=== PATIENT | male | born 1955 | race Caucasian/White ===

== ENCOUNTER → 2020-06-27 | Outpatient (CLI) | payer MEDICARE, OTHER ==
[~2020-06-27] MED LIST: NAPR500 PO; OXYACE5T PO
[2020-06-27 12:55] LABS: BASOPHILS ABSOLUTE AUTO 0.04 K/mm3 (0.00-0.23); BASOPHILS PERCENT AUTO 0 % (0-2); EOSINOPHILS PERCENT AUTO 1 % (0-6); Hematocrit 49.1 % (37.0-53.0); Hemoglobin 16.4 g/dL (13.5-17.5); IMMATURE GRAN ABSOLUTE AUTO 0.07 K/mm3 (0.00-0.10); IMMATURE GRAN PERCENT AUTO 1 % (0-1); LYMPHOCYTES ABSOLUTE AUTO 1.88 K/mm3 (0.84-5.20); LYMPHOCYTES PERCENT AUTO 18 % (21-46); MONOCYTES ABSOLUTE AUTO 0.72 K/mm3 (0.16-1.47); MONOCYTES PERCENT AUTO 7 % (4-13); Mean Corpuscular HGB Conc 33.4 g/dL (31.5-36.5); Mean Corpuscular Volume 87 fL (80-100); Mean Platelet Volume 9.1 fL (9.1-12.4); NEUTROPHILS ABSOLUTE AUTO 7.45 K/mm3 (1.96-9.15); NEUTROPHILS PERCENT AUTO 73 % (41-73); Platelet Count 305 K/mm3 (150-400); RDW Coefficient Variation 13.1 % (11.7-14.2); RDW Standard Deviation 41.1 fL (35.1-46.3); Red Blood Cell Count 5.66 M/mm3 (4.30-5.90); White Blood Cell Count 10.26 K/mm3 (4.00-11.30)
[2020-06-27 13:13] LABS: Alanine Aminotransfer (ALT/SGP 28 U/L (12-78); Albumin, Blood 4.3 g/dL (3.4-5.0); Albumin/Globulin Ratio 1.4 (0.8-1.8); Alk Phos 80 U/L (40-126); Anion Gap 9 mmol/L (6-16); Aspartate Aminotrans (AST/SGOT 20 U/L (12-37); Bilirubin, Total 0.6 mg/dL (0.1-1.0); Blood Urea Nitrogen 19 mg/dL (8-24); Bun/Creatinine Ratio 21.3 (12.0-20.0); CO2, Blood 27 mmol/L (21-32); Chloride, Blood 102 mmol/L (98-108); Creatinine, Blood 0.89 mg/dL (0.60-1.20); Globulin, Blood 3.1 g/dL (2.2-4.0); Glomerular Filtration Rate >60 (60-); Glucose, Blood 100 mg/dL (70-99); Sodium, Blood 138 mmol/L (136-145); Thyroid Stimulating Hormone 0.742 uIU/mL (0.360-4.800); Total Protein, Blood 7.4 g/dL (6.4-8.2)
== END | disposition home or self-care (01) ==
LOC: PLD 12:43 → LAB SHORT 12:43
PROVIDERS: Physician Assistant
DX: R21 Rash and other nonspecific skin eruption (principal); R53.83 Other fatigue
CPT/HCPCS: 80053; 84443; 85025

== ENCOUNTER → 2020-12-09 | Outpatient (CLI) | payer MEDICARE, OTHER | END | disposition home or self-care (01) | LOC: LAB SHORT 11:14 → LAB 11:14 | DX: L92.0 Granuloma annulare (principal) | CPT/HCPCS: 88305; 88313 ==

== ENCOUNTER → 2021-10-22 | Outpatient (CLI) | payer MEDICARE ==
[2021-10-22 15:37] LABS: BASOPHILS ABSOLUTE AUTO 0.04 K/mm3 (0.00-0.23); BASOPHILS PERCENT AUTO 1 % (0-2); EOSINOPHILS ABSOLUTE AUTO 0.09 K/mm3 (0.00-0.68); EOSINOPHILS PERCENT AUTO 1 % (0-6); Hematocrit 45.8 % (37.0-53.0); Hemoglobin 14.9 g/dL (13.5-17.5); IMMATURE GRAN ABSOLUTE AUTO 0.02 K/mm3 (0.00-0.10); IMMATURE GRAN PERCENT AUTO 0 % (0-1); LYMPHOCYTES ABSOLUTE AUTO 2.06 K/mm3 (0.84-5.20); LYMPHOCYTES PERCENT AUTO 32 % (21-46); MONOCYTES ABSOLUTE AUTO 0.53 K/mm3 (0.16-1.47); MONOCYTES PERCENT AUTO 8 % (4-13); Mean Corpuscular HGB 28.9 pg (26.0-34.0); Mean Corpuscular HGB Conc 32.5 g/dL (31.5-36.5); Mean Corpuscular Volume 89 fL (80-100); Mean Platelet Volume 9.4 fL (9.1-12.4); NEUTROPHILS ABSOLUTE AUTO 3.78 K/mm3 (1.96-9.15); NEUTROPHILS PERCENT AUTO 58 % (41-73); Platelet Count 260 K/mm3 (150-400); RDW Coefficient Variation 13.2 % (11.7-14.2); RDW Standard Deviation 43.6 fL (35.1-46.3); Red Blood Cell Count 5.15 M/mm3 (4.30-5.90); White Blood Cell Count 6.52 K/mm3 (4.00-11.30)
[2021-10-22 16:00] LABS: Alanine Aminotransfer (ALT/SGP 35 U/L (12-78); Albumin, Blood 3.8 g/dL (3.4-5.0); Albumin/Globulin Ratio 1.3 (0.8-1.8); Alk Phos 74 U/L (50-136); Anion Gap 5 mmol/L (6-16); Aspartate Aminotrans (AST/SGOT 24 U/L (12-37); Bilirubin, Total 0.5 mg/dL (0.1-1.0); Blood Urea Nitrogen 28 mg/dL (8-24); Bun/Creatinine Ratio 31.1 (12.0-20.0); CHOL/HDL RATIO 3.8; CO2, Blood 27 mmol/L (21-32); Calcium, Blood 8.6 mg/dL (8.5-10.1); Chloride, Blood 108 mmol/L (98-108); Cholesterol 186 mg/dL (50-200); Glomerular Filtration Rate >60 (60-); Glucose, Blood 95 mg/dL (70-99); HDL Cholesterol 49 mg/dL (>39); LDL/HDL RATIO 2.4; Low Density Lipoprotein Chol 119 mg/dL (0-110); Potassium, Blood 3.9 mmol/L (3.5-5.5); Sodium, Blood 140 mmol/L (136-145); Thyroid Stimulating Hormone 0.647 uIU/mL (0.360-4.800); Total Protein, Blood 6.8 g/dL (6.4-8.2); Triglycerides 90 mg/dL (30-160); Very Low Density Lipoprot Chol 18 mg/dL (6-32)
== END | disposition home or self-care (01) ==
LOC: LAB SHORT 13:14
PROVIDERS: Family Medicine
DX: I10 Essential (primary) hypertension (principal)
CPT/HCPCS: 36415; 80053; 80061; 84443; 85025

== ENCOUNTER 2024-05-28 12:54 | Inpatient (IN) | payer OTHER, MEDICARE ==
[2024-05-28] VITALS (23 sets, daily range): BP systolic 114–158; BP diastolic 67–98
[~2024-05-28] VITALS: Ht 177.8 cm; Wt 86.3 kg
[2024-05-28] MEDS ORDERED: FentaNYL Citrate 50 MCG/ML 2 ML Injection IV ONE ×2 (13:10→13:55)
[2024-05-28] MEDS ORDERED: CeFAZolin Sodium 2,000 MG in NS 100 ML IV ONE (13:10)
[2024-05-28] MEDS ORDERED: Ondansetron HCl 2 MG / ML 2ML Vial IV ONE (13:10)
[2024-05-28 13:24] LABS: BASOPHILS ABSOLUTE AUTO 0.04 K/mm3 (0.00-0.23); BASOPHILS PERCENT AUTO 0 % (0-2); EOSINOPHILS ABSOLUTE AUTO 0.04 K/mm3 (0.00-0.68); EOSINOPHILS PERCENT AUTO 0 % (0-6); Hematocrit 47.2 % (37.0-53.0); Hemoglobin 15.9 g/dL (13.5-17.5); IMMATURE GRAN ABSOLUTE AUTO 0.22 K/mm3 (0.00-0.10); IMMATURE GRAN PERCENT AUTO 1 % (0-1); LYMPHOCYTES ABSOLUTE AUTO 2.41 K/mm3 (0.84-5.20); LYMPHOCYTES PERCENT AUTO 14 % (21-46); MONOCYTES ABSOLUTE AUTO 0.77 K/mm3 (0.16-1.47); MONOCYTES PERCENT AUTO 5 % (4-13); Mean Corpuscular HGB 29.9 pg (26.0-34.0); Mean Corpuscular HGB Conc 33.7 g/dL (31.5-36.5); Mean Corpuscular Volume 89 fL (80-100); Mean Platelet Volume 9.1 fL (9.1-12.4); NEUTROPHILS ABSOLUTE AUTO 13.42 K/mm3 (1.96-9.15); NEUTROPHILS PERCENT AUTO 79 % (41-73); Platelet Count 287 K/mm3 (150-400); RDW Coefficient Variation 13.2 % (11.7-14.2); Red Blood Cell Count 5.32 M/mm3 (4.30-5.90)
[2024-05-28] MEDS ORDERED: Diphth,Pertuss(Acell),Tet Vac 0.5 ML VIAL IM ONE (13:45)
[2024-05-28 13:49] LABS: Albumin, Blood 4.3 g/dL (3.4-5.0); Albumin/Globulin Ratio 1.5 (0.8-1.8); Bilirubin, Total 0.8 mg/dL (0.1-1.0); Bun/Creatinine Ratio 20.6 (12.0-20.0); Calcium, Blood 9.4 mg/dL (8.5-10.1); Creatinine, Blood 1.07 mg/dL (0.60-1.20); Globulin, Blood 2.9 g/dL (2.2-4.0); Potassium, Blood 3.9 mmol/L (3.5-5.5); Total Protein, Blood 7.2 g/dL (6.4-8.2)
[2024-05-28] MEDS ORDERED: HYDROmorphone HCl/Pf 1MG SYR IV ONE (15:00)
[2024-05-28] MEDS ORDERED: Lactated Ringer's 1,000 ML IV SCH (15:40)
[2024-05-28] MEDS ORDERED: CeFAZolin Sodium 2,000 MG in NS 100 ML IV SCH (15:40)
[2024-05-28] MEDS ORDERED: HYDROmorphone HCl/Pf 1MG SYR IV SCH (16:00)
[2024-05-28] MEDS ORDERED: Midazolam HCl 1MG / ML 2ML Vial ONE (16:00)
[2024-05-28] MEDS ORDERED: FentaNYL Citrate 50 MCG/ML 2 ML Injection ONE ×2 (16:00→17:41)
[2024-05-28] MEDS ORDERED: Ketorolac Tromethamine 30mg Vial ONE (16:11)
[2024-05-28] MEDS ORDERED: Ondansetron HCl 2 MG / ML 2ML Vial ONE (16:12)
--- NOTE | 2024-05-28 16:12 | NUR ---
History, Chart, Medications and Allergies reviewed before start of procedure. Pre-Op teaching done. Pt verbalizes understanding. PT BELONGINGS LEFT WITH AT BS.
[2024-05-28] MEDS ORDERED: Phenylephrine HCl 100 MCG/ML-NS 10MLSYR (1MG/10ML) ONE (16:47)
--- NOTE | 2024-05-28 16:51 | NUR ---
05/28/24 1651 Jerad Franco ANESTHESIOLOGIST GAVE ANCEF 2GM INTRAOPERATIVELY AT 1632. SEE ANESTHESIA RECORD
[2024-05-28] MEDS ORDERED: HYDROmorphone HCl/Pf 1MG SYR ONE ×2 (17:50→18:09)
[2024-05-28] MEDS ORDERED: OxyCODONE HCL 5 MG TAB PO PRN (18:10)
[2024-05-28] MEDS ORDERED: Magnesium Hydroxide Conc 10 ML UDC PO PRN (18:15)
[2024-05-28] MEDS ORDERED: Bisacodyl 10 MG Supp PR PRN (18:15)
[2024-05-28] MEDS ORDERED: HYDROmorphone HCl/Pf 1MG SYR IV PRN (18:20)
[2024-05-28] MEDS ORDERED: FLU VACC TS2024-25(6MOS UP)/PF 45 MCG/0.5 ML SYRINGE IM ONE (18:44)
[2024-05-28] MEDS ORDERED: TAMS.4ER PO (20:00)
[2024-05-28] MEDS ORDERED: Ketorolac Tromethamine 30mg Vial IV PRN (20:30)
[2024-05-28] MEDS ORDERED: Docusate Sodium 100 MG Cap PO SCH (21:00)
[2024-05-29] MEDS ORDERED: Acetaminophen 500 MG Tab PO SCH
[2024-05-29] MEDS ORDERED: CeFAZolin Sodium 2,000 MG in NS 100 ML IV SCH
--- NOTE | 2024-05-29 00:07 | NUR ---
ARRIVAL PT NEW ADMIT FROM OR W/ I&D OF L HAND. ARRIVED A/OX4 AND PAINFUL. ABLE TO MOVE FINGERS ON COMMAND, 3 SECOND CAP REFILL. VSS. BULKY DRESSING IS C/D/I.
[2024-05-29 04:04] VITALS: BP 129/88
--- NOTE | 2024-05-29 04:44 | NUR ---
SHIFT SUMMARY POD1 I&D OF LUE. SENSATION AND CIRCULATION REMAIN INTACT. PT REPORTS HIGH LEVELS OF PAIN T/O THE NIGHT, BUT ENDORSES THAT IT HAS SLOWLY IMPROVED. VSS. PT SLEPT ON AND OFF T/O THE NIGHT. SBA TO THE BATHROOM, VOIDING W/O DIFFICULTY. TOLLERATING PO INTAKE. DRESSING NOTED TO HAVE SANGUINEOUS DRAINAGE LEAKING THROUGH THE MARILIN WRAP, REINFORCED WITH AN ABD AND ANOTHER MARILIN WRAP. OVERALL, NO ACUTE EVENTS NOTED. PLAN TO CONTINUE IV ABX THERAPY.
[2024-05-29 07:21] VITALS: BP 115/80
[2024-05-29] MEDS ORDERED: Ondansetron HCl 2 MG / ML 2ML Vial IV PRN (07:30)
[2024-05-29] MEDS ORDERED: Tamsulosin HCl 0.4 MG Cap PO SCH (09:00)
--- NOTE | 2024-05-29 14:15 | NUR ---
PT C/O INCREASING PRESSURE IN L HAND WITH DECREASED SENSATION IN HIS L THUMB. OUTER MARILIN WRAP REMOVED. PT HAD ABD PAD OVER LOWER MARILIN WRAP THAT HAS SOME DRIED BLOOD ON IT, BUT MOSTLY UNSATURATED. NEW GAUZE AND MARILIN WRAP LOOSELY APPLIED OVER THE TOP OF HAND/WRIST. PT REPORTS INCREASED SENSATION IN HAND. MINIMAL BLEEDING AT THIS POINT. ORIGINAL DRSG REMAINS IN PLACE AT THIS TIME. PT MEDICCATED WITH DILAUDID 1MG IVP FOR 7/10 PAIN AND L ARM IS ELEVATED WITH PILLOWS.
[2024-05-29 14:28] VITALS: BP 108/77
--- NOTE | 2024-05-29 16:54 | NUR ---
SHIFT SUMMARY POST OP DAY 1 FOR WASH OUT AVULSION ON L HAND. PT REMAINED COMFORTABLE MOST OF THE MORNING. LATER IN THE DAY HIS PAIN INCREASED AND WAS MEDICATED PER EMAR. PT BRIAN PO INTAKE WELL. SBA FOR AMBULATION TO RR. PLAN TO GO BACK TO OR TOMORROW FOR ANOTHER CLEANING OF WOUND. CONT IV ABX AND INCREASE PROTEIN INAKE TO PROMOTE HEALING.
--- NOTE | 2024-05-29 18:01 | NUR ---
DR SIDDIQUI IN ROOM. DRESSING REMOVED. PT HAS NOTABLE AMOUNT OF SWELLING AND MINIMAL BLEEDING FROM STITCHES THAT WERE PLACED ON OR. PT HAS LIMITED ROM OF WRIST AND FINGERS. NON-STICK OIL EMERSION DRSG PLACED OVER INCISIONS, BULKY GAUZE, AND MARILIN WRAP LOOSELY WRAPPED AROUND L HAND/WRIST. CM INTACT. EXTREMITY ELEVATED WITH MULTIPLE PILLOWS. ADEQUATE PAIN CONTROL AT THIS TIME. CALL LIGHT IN REACH.
[2024-05-29 19:46] VITALS: BP 116/78
[2024-05-30] VITALS (19 sets, daily range): BP systolic 105–169; BP diastolic 71–103
--- NOTE | 2024-05-30 04:35 | NUR ---
SHIFT SUMMARY POD 2 L HAND I&D PT ABLE TO REST DURING THE NIGHT. PAIN MANAGED PER EMAR. PT REMIANS NPO SINCE PA FOR ANOTHER I&D OF THE L HAND TODAY. VOIDING. DRESSING TO L HAND REAMINS C/D/I. PT SBA IN THE ROOM. ABLE TO WIGGLE FINGERS AND HAS SOME TINGLING BUT NO NUMBNESS. VSS. NO OTHER CONCERNS AT THIS TIMME, CALL LIGHT WITHIN REACH
[2024-05-30] MEDS ORDERED: Arginine/Glutamine/Calcium Hmb 1 Packet PO SCH (09:00)
[2024-05-30] MEDS ORDERED: Lactated Ringer's 1,000 ML IV SCH (14:45)
[2024-05-30] MEDS ORDERED: propofoL 20 ML IV ONE (15:07)
[2024-05-30] MEDS ORDERED: FentaNYL Citrate 50 MCG/ML 2 ML Injection ONE (15:07)
[2024-05-30] MEDS ORDERED: Dexamethasone Sod Phos 10 MG/ML 1ML VIAL ONE (15:17)
[2024-05-30] MEDS ORDERED: Ondansetron HCl 2 MG / ML 2ML Vial ONE (15:17)
[2024-05-30] MEDS ORDERED: CeFAZolin Sodium 1000 mg Vial ONE (15:23)
[2024-05-30] MEDS ORDERED: HYDROmorphone HCl/Pf 1MG SYR ONE (16:25)
--- NOTE | 2024-05-30 17:20 | NUR ---
PT ARRIVES BACK TO ROOM 221 FROM PACU. STAND AND TRANSFER INDEPENDENTLY. 9/10 PAIN IN L HAND, RECENTLY MEDICATED WITH DILAUDID AND TORADOL POST OP. PT IS A/OX4. PT HAS BULKY GAUZE DRESSING AND MARILIN WRAP PLACED PRIOR TO ARRIVAL - C/D/I. PT'S TO BE CALLED AND ADDITIONAL PAIN MEDICATION GIVEN PER EMAR.
[2024-05-31 05:06] VITALS: BP 105/77
--- NOTE | 2024-05-31 05:49 | NUR ---
SHIFT SUMMARY POD 1 L HAND I&D PT ABLE TO SLEEP T/O THE NIGHT. PAIN MANAGED PER EMAR. TOLERATING PO INTAKE. VOIDING. PT ABLE TO SLIGHTLY WIGGLE FINGERS, ABLE TO FEEL SENSATION, AND DENIES NUMBNESS IN THE FINGERS OF L HAND. DRESSING TO L HAND IS C/D/I. PT SBA. VSS. NO OTHER CONCERNS AT THIS TIME, CALL LIGHT WITHIN REACH
[2024-05-31 07:17] VITALS: BP 113/77
[2024-05-31 15:25] VITALS: BP 126/76
--- NOTE | 2024-05-31 17:07 | NUR ---
SHIFT SUMMARY PT
--- NOTE | 2024-05-31 17:08 | NUR ---
SHIFT SUMMARY PT POD1 FROM SECOND I&D OF L HAND. PT DID WELL TODAY AND REQUIRED PRN PAIN MEDICATION FOR ADEQUATE PAIN CONTROL. LUE WAS ELEVATED T/O THE DAY. PT WAS UP IN THE CHAIR FOR MOST OF THE DAY AND AMBULATES INDEPENDENTLY IN ROOM WITH SBA. PT HAD AND FRIENDS/FAMILY VISIT HIM TODAY AND HE WAS IN A GOOD MOOD. DRSG ON HAND C/D/I. ONGOING SWELLING IN [place] BUT CONTROLLED WITH ELEVATION.
[2024-05-31 19:32] VITALS: BP 119/74
[2024-05-31] MEDS ORDERED: NS 250 ML IV PRN (22:45)
[2024-06-01] VITALS (14 sets, daily range): BP systolic 114–186; BP diastolic 59–108
--- NOTE | 2024-06-01 04:22 | NUR ---
SHIFT SUMMARY POD 2 L HAND I&D PT ABLE TO REST DURING THE NIGHT. PAIN MANAGED PER EMAR. PT MADE NPO AT CT FOR POSSIBEL PROCEDURE TODAY. DRESING TO L HAND IS C/D/I. PT ABLE TO WIGGLE FINGERS, DENIES N/T TO FINGERS AND HAS GOOD CAP REFILL. PT IND IN THE ROOM. VSS. NO OTHER CONCERNS AT THIS TIME, CALL LIGHT WITHIN REACH
[2024-06-01 05:17] LABS: BASOPHILS ABSOLUTE AUTO 0.01 K/mm3 (0.00-0.23); BASOPHILS PERCENT AUTO 0 % (0-2); EOSINOPHILS ABSOLUTE AUTO 0.09 K/mm3 (0.00-0.68); EOSINOPHILS PERCENT AUTO 1 % (0-6); Hematocrit 29.5 % (37.0-53.0); Hemoglobin 9.7 g/dL (13.5-17.5); IMMATURE GRAN ABSOLUTE AUTO 0.05 K/mm3 (0.00-0.10); IMMATURE GRAN PERCENT AUTO 1 % (0-1); LYMPHOCYTES PERCENT AUTO 14 % (21-46); MONOCYTES ABSOLUTE AUTO 0.69 K/mm3 (0.16-1.47); MONOCYTES PERCENT AUTO 8 % (4-13); Mean Corpuscular HGB 29.8 pg (26.0-34.0); Mean Corpuscular HGB Conc 32.9 g/dL (31.5-36.5); Mean Corpuscular Volume 91 fL (80-100); Mean Platelet Volume 9.4 fL (9.1-12.4); NEUTROPHILS PERCENT AUTO 77 % (41-73); Platelet Count 198 K/mm3 (150-400); RDW Coefficient Variation 13.3 % (11.7-14.2); RDW Standard Deviation 43.9 fL (35.1-46.3); Red Blood Cell Count 3.25 M/mm3 (4.30-5.90); White Blood Cell Count 8.84 K/mm3 (4.00-11.30)
[2024-06-01 06:46] LABS: Albumin, Blood 2.2 g/dL (3.4-5.0); Albumin/Globulin Ratio 0.7 (0.8-1.8); Bilirubin, Total 0.4 mg/dL (0.1-1.0); Calcium, Blood 8.4 mg/dL (8.5-10.1); Globulin, Blood 3.2 g/dL (2.2-4.0); Potassium, Blood 4.2 mmol/L (3.5-5.5); Total Protein, Blood 5.4 g/dL (6.4-8.2)
--- NOTE | 2024-06-01 16:03 | NUR ---
SUMMARY: PT IS POD2 I&D OF L HAND. VSS, NPO, A/O. PT IS AWAITING SURGERY, PLAN IS TO GO AT 1700. PT PAINFUL TODAY, HAS NEEDED MEDICATION Q4. OTHERWISE PT INDEP IN ROOM. SENSATION INTACT TO L HAND, DRESSING HAS SMALL AMT SS DRAINAGE THIS RN REINFORCED DRESSING. NO ACUTE SAFETY CONCERNS, PT USES CALL LIGHT. REPORT PASSED TO SAI GAMBLE.
[2024-06-01] MEDS ORDERED: Lactated Ringer's 1,000 ML IV SCH (16:10)
[2024-06-01] MEDS ORDERED: Lactated Ringer's 1,000 ML IV ONE (19:03)
[2024-06-01] MEDS ORDERED: Ketorolac Tromethamine 30mg Vial ONE (19:12)
[2024-06-01] MEDS ORDERED: FentaNYL Citrate 50 MCG/ML 2 ML Injection ONE (19:55)
[2024-06-01] MEDS ORDERED: Midazolam HCl 1MG / ML 2ML Vial ONE (19:55)
[2024-06-01] MEDS ORDERED: Ondansetron HCl 2 MG / ML 2ML Vial ONE (20:29)
[2024-06-01] MEDS ORDERED: Dexamethasone Sod Phos 10 MG/ML 1ML VIAL ONE (20:29)
--- NOTE | 2024-06-01 20:33 | NUR ---
06/01/242032 Jenny Morgan ON SCHEDULED ANTIBIOTICS
[2024-06-02 04:29] VITALS: BP 127/84
--- NOTE | 2024-06-02 04:41 | NUR ---
SHIFT SUMMARY SULEMA WAS ALERT AND FULLY ORIENTED WHEN HE RETURNED FROM I&D [facility]. L HAND DRESSED, NO DRAINIAGE NOTED. PAIN MANAGEMENT IS EFFECTIVE AT THIS TIME. PT ABLE TO AMBULATE TO BR AND VOID APPROPRIATELY W 1 STAFF SBA. NO ACUTE EVENTS OR NOTED CHANGES TO PT CONDITION. DISTAL CIRCULATION INTACT.
[2024-06-02 07:15] VITALS: BP 105/87
[2024-06-02 14:49] VITALS: BP 103/61
--- NOTE | 2024-06-02 16:35 | NUR ---
SHIFT SUMMARY PT IS POD#1. PAIN HAS BEEN MANAGED WITH TYLENOL, OXY, DILAUDID AND TORADOL. PT HAS BEEN ENCOURAGED TO ELEVATE HIS L ARM TO HELP REDUCE SWELLING. PT IS A SBA IN THE ROOM. HE IS TOLERATING PO. FAMILY HAS BEEN PRESENT FOR SUPPORT.
[2024-06-02 18:58] VITALS: BP 103/71
[2024-06-03 04:04] VITALS: BP 128/73
--- NOTE | 2024-06-03 04:52 | NUR ---
SHIFT SUMMARY SULEMA WAS A/O X4 ON ASSESMENT. PT MORE ALERT AND STABLE ON FEET TONIGHT COMPARED TO PREVIOUS NIGHT. NO ACUTE CHANGES OR EVENTS NOTED TONIGHT. PT PAIN KEPT TOLERABLE ON CURRENT MEDS. CIRCULATION TO DISTAL EXTREMETIES INTACT. PT RESTING IN BED. PRN BOWEL CARE ADMINISTERED, PT NEEDING TO HAVE BM STILL.
[2024-06-03 07:11] VITALS: BP 115/78
--- NOTE | 2024-06-03 11:00 | NUR ---
PT REPORTED INCREASED L HAND PAIN. DR. ALBA NOTIFIED, HE ROUNED ON THE PT. PT HAS BEEN ENCOURAGED TO KEEP LUE ELEVATED. TYLENOL, OXY AND DILAUDID USED TO MANAGE PAIN. DR. ALBA ORDERED CELEBREX FOR IMPROVED PAIN CONTROL.
[2024-06-03] MEDS ORDERED: Glycerin Adult Supp 1 EA PR ONE (11:50)
[2024-06-03] MEDS ORDERED: Polyethylene Glycol 3350 17 gm PO PRN (11:50)
[2024-06-03] MEDS ORDERED: Celecoxib 100 MG Cap PO SCH ×2 (12:45→21:00)
[2024-06-03 12:51] LABS: BASOPHILS ABSOLUTE AUTO 0.03 K/mm3 (0.00-0.23); BASOPHILS PERCENT AUTO 0 % (0-2); EOSINOPHILS PERCENT AUTO 2 % (0-6); Hematocrit 32.8 % (37.0-53.0); Hemoglobin 11.2 g/dL (13.5-17.5); IMMATURE GRAN ABSOLUTE AUTO 0.12 K/mm3 (0.00-0.10); IMMATURE GRAN PERCENT AUTO 1 % (0-1); LYMPHOCYTES ABSOLUTE AUTO 1.76 K/mm3 (0.84-5.20); LYMPHOCYTES PERCENT AUTO 17 % (21-46); MONOCYTES ABSOLUTE AUTO 1.04 K/mm3 (0.16-1.47); MONOCYTES PERCENT AUTO 10 % (4-13); Mean Corpuscular HGB 29.9 pg (26.0-34.0); Mean Corpuscular HGB Conc 34.1 g/dL (31.5-36.5); Mean Corpuscular Volume 88 fL (80-100); Mean Platelet Volume 8.8 fL (9.1-12.4); NEUTROPHILS PERCENT AUTO 69 % (41-73); Platelet Count 277 K/mm3 (150-400); RDW Coefficient Variation 12.9 % (11.7-14.2); RDW Standard Deviation 41.4 fL (35.1-46.3); Red Blood Cell Count 3.75 M/mm3 (4.30-5.90); White Blood Cell Count 10.25 K/mm3 (4.00-11.30)
[2024-06-03 13:06] LABS: Bun/Creatinine Ratio 42.7 (12.0-20.0); C-REACTIVE PROTEIN, EXT RANGE 8.39 mg/dL (0.000-0.300); Calcium, Blood 8.5 mg/dL (8.5-10.1); Creatinine, Blood 0.82 mg/dL (0.60-1.20); Potassium, Blood 4.3 mmol/L (3.5-5.5)
[2024-06-03 15:11] VITALS: BP 144/80
[2024-06-03] MEDS ORDERED: Naloxone HCl 0.4MG / ML 1ML Vial IV PRN (16:45)
[2024-06-03 19:05] VITALS: BP 120/76
--- NOTE | 2024-06-03 20:18 | NUR ---
SHIFT SUMMARY PT IS POD#2 FROM I&D. PAIN HAS BEEN INCREASED T/O THE DAY, DR ALBA AWARE. PT TAKING OXY, TYLENOL, AND DILAUDID. PT WAS ALSO STARTED ON CELEBREX WHICH DID NOT APPEAR TO HAVE A SIGNIFICANT EFFECT ON PAIN MANAGEMENT. PT REPORTS FEELING LIKE HIS FINGERS ARE MORE SWOLLEN AND REPORTS INCREASED PAIN WHEN MOVING THEM. CAP REFIL REMAINS <3 SECONDS TO FINGERS BUT THUMB IS APPROXIMATELY 3 SECONDS. FINGERS ARE WARM. PT REPORTS SENSATION IS UNCHANGED. PT HAS USED ICE AND ELEVATION TO HELP MANAGE PAIN. PT HAS HAD A DECREASED APPETITE THIS SHIFT, FLUIDS ENCOURAGED. FAMILY WAS PRESENT T/O THE DAY FOR SUPPORT. CONTINUOUS PULSE OX IN PLACE FOR HIGH RISK PAIN MANAGEMENT. PT DID IS REQUIRING 2L O2 VIA NC THIS EVENING WHILE SLEEPING. INCENTIVE SPIROMETER GIVEN AND PT EDUCATED. BEDSIDE REPORT GIVEN TO STEVE GIBBS.
[2024-06-04] VITALS (13 sets, daily range): BP systolic 115–153; BP diastolic 66–93
--- NOTE | 2024-06-04 05:09 | NUR ---
SHIFT SUMMARY PT REPORTING SEVERE PAIN THROUGHOUT THE NIGHT BUT HAS BEEN ABLE TO REST, MEDICATED PER EMAR W/ SOME RELIEF. NPO SINCE 0000 FOR SURGERY TODAY. PT REPORTING MINIMIZED ROM IN L FINGERS DUE TO PAIN, SWELLING PRESENT IN ALL FINGERS. CAP REFILL 2-3 SECS IN ALL FINGERS. L HAND ELEVATED ON PILLOW, ICE APPLIED TO BEND OF ARM W/ LITTLE RELIEF. PT IND TO BATHROOM, VOIDING APPROPRIATELY. IV ABX GIVEN PER EMAR. VSS, CONT BIOX IN PLACE. 2L NC. PT USING CALL LIGHT APPROPRIATELY.
[2024-06-04 09:05] LABS: Gentamicin, Random 0.7 ug/Ml
[2024-06-04 13:53] LABS: Bun/Creatinine Ratio 31.6 (12.0-20.0); Calcium, Blood 8.7 mg/dL (8.5-10.1); Creatinine, Blood 0.76 mg/dL (0.60-1.20); Potassium, Blood 4.4 mmol/L (3.5-5.5)
[2024-06-04 13:57] LABS: BASOPHILS ABSOLUTE AUTO 0.03 K/mm3 (0.00-0.23); BASOPHILS PERCENT AUTO 0 % (0-2); EOSINOPHILS PERCENT AUTO 3 % (0-6); Hematocrit 34.2 % (37.0-53.0); Hemoglobin 11.6 g/dL (13.5-17.5); IMMATURE GRAN ABSOLUTE AUTO 0.16 K/mm3 (0.00-0.10); IMMATURE GRAN PERCENT AUTO 2 % (0-1); LYMPHOCYTES ABSOLUTE AUTO 1.41 K/mm3 (0.84-5.20); LYMPHOCYTES PERCENT AUTO 15 % (21-46); MONOCYTES ABSOLUTE AUTO 0.98 K/mm3 (0.16-1.47); MONOCYTES PERCENT AUTO 10 % (4-13); Mean Corpuscular HGB 30.1 pg (26.0-34.0); Mean Corpuscular HGB Conc 33.9 g/dL (31.5-36.5); Mean Corpuscular Volume 89 fL (80-100); NEUTROPHILS ABSOLUTE AUTO 6.77 K/mm3 (1.96-9.15); NEUTROPHILS PERCENT AUTO 70 % (41-73); Platelet Count 321 K/mm3 (150-400); RDW Coefficient Variation 12.9 % (11.7-14.2); RDW Standard Deviation 41.6 fL (35.1-46.3); Red Blood Cell Count 3.85 M/mm3 (4.30-5.90); White Blood Cell Count 9.65 K/mm3 (4.00-11.30)
--- NOTE | 2024-06-04 15:14 | NUR ---
History, Chart, Medications and Allergies reviewed before start of procedure. Pre-Op teaching done. Pt verbalizes understanding. Patient confirms NPO status and agrees with scheduled surgery. PT LEFT ALL BELONGINGS IN SURG ROOM FLOOR.
[2024-06-04] MEDS ORDERED: Lactated Ringer's 1,000 ML IV SCH (15:20)
[2024-06-04] MEDS ORDERED: EpiNEPhrine 1 MG/1 ML 1ML Vial ONE (15:26)
[2024-06-04] MEDS ORDERED: Dexamethasone Sod Phos 10 MG/ML 1ML VIAL ONE (15:26)
[2024-06-04] MEDS ORDERED: Midazolam HCl 1MG / ML 2ML Vial ONE (15:27)
[2024-06-04] MEDS ORDERED: Bupivacaine 0.5% HCl 5 MG/ML 30MLVIAL ONE (15:27)
[2024-06-04] MEDS ORDERED: propofoL 20 ML IV ONE (15:52)
--- NOTE | 2024-06-04 16:24 | NUR ---
06/04/24 1624 [facility] IN DAY SURGERY PRIOR TO ARRIVING TO THE OR.
--- NOTE | 2024-06-04 16:31 | NUR ---
SHIFT SUMMARY PATIENT POST OP DAY 3. L HAND BULKY DRESSING REMIANS UNCHANGED WITH NO DRIANAGE DURING SHIFT. PATIENT NPO SINCE 0000 TODAY SCHEDULED FOR FOURTH I&D.LEFT AT APPROXIEMETLY 1500 TODAY FOR I&D PROCEDURE.DRESSING WILL BE CHANGED IN OR.PATIENT IS A&O X4. PATIENT REPORTS PS 05/17. HE REFUSED PAIN MEDICATION DURING SHIFT, BUT DID FINALLY AGREE TO RECIEVE DOSE OF OXY. NON PHARMACOLOGIC METHODS ENCOURAGED. HE REPORTS NO RELEIEF.PATIENT DID GET SOME REST DURING SHIFT. PATIENT IS INDEPENDANT TO RESTROOM, NO ISSUE VOIDING AND HAD BM DURING SHIFT. PATIENT ON 3L O2 NC. THE O2 WAS INCREASED FROM 2 TO 3L DUE TO DESATURATION WHILE AMBULATING TO RESTROOM.
--- NOTE | 2024-06-04 17:38 | NUR ---
ARRIVAL PT ARRIVED TO UNIT FROM PACU. ABLE TO STAND AND AMBULATE TO RESTROOM FROM [facility]. PT PLACED IN SLING TO HELP KEEP ARM ELEVATED PT REPORTS INCREASED COMFORT WITH SLING. DENIES ANY PAIN AT THIS TIME R/T BLOCK. CAP REFILL TO L HAND <3, WARM TO TOUCH. DENIES SENSATION, UNABLE TO WIGGLES FINGERS. ON ROOM AIR AT THIS TIME, ABLE TO TAKE DEEP BREATHS. DENIES SOB. TOLERATIING DIET AT THIS TIME. FAMILY AT BEDSIDE.
[2024-06-05 05:39] VITALS: BP 142/99
[2024-06-05 05:40] VITALS: BP 152/93
--- NOTE | 2024-06-05 06:02 | NUR ---
SHIFT SUMMARY PT IS POD1 FOR HIS 4TH I&D OF THE L HAND. PT REPORTING NUMBNESS IN L HAND FOR MOST OF SHIFT FROM SURGICAL NERVE BLOCK, BUT PAIN GRADUALLY CAME BACK AND PT NOW REPORTS SEVERE. PO AND IV PAIN MEDS GIVEN W/ LITTLE RELIEF. PT CURRENTLY ON RA W/ O2 SATS >92%, CONT BIOX ON. CAP REFILL IN ALL FINGERS 2-3 SECS, PT CAN WIGGLE ALL FINGERS MINIMALLY, SLING IN PLACE. DRESSING C/D/I. PT IND TO BATHROOM, VOIDING. MEDICATED FOR NAUSEA PER EMAR. CALLING APPROPRIATELY.
[2024-06-05 07:20] VITALS: BP 165/95
[2024-06-05] MEDS ORDERED: Naloxone HCl 0.4MG / ML 1ML Vial IV PRN (09:00)
[2024-06-05] MEDS ORDERED: HYDROmorphone 1 MG/ML 30 ML Bag IV PRN (09:35)
--- NOTE | 2024-06-05 10:08 | NUR ---
Pt verbalized understanding of [employer] teaching. Pt and family in room verbalized understanding and agreement that pt is the only one that should be pressing the veterinary technician assistant pump button. Settings confirmed with 2 RN check. Con Biox in place. Call light within reach.
[2024-06-05 14:30] VITALS: BP 132/80
--- NOTE | 2024-06-05 18:27 | NUR ---
Shift Summary No acute events noted today. Pt POD 1 I&D of left hand. Wound wrapped with gauze and andrzej bandage. Cap refill <3 sec. Fingers warm to touch, wiggles fingers. Elevated on pillows. Minimal drainage noted. Pt was placed on CARBURIZER pump for pain management. Pt reports tolerable level of pain throughout the day. Independently moving in room. VSS. A&O x4.
[2024-06-05 19:21] VITALS: BP 103/68
--- NOTE | 2024-06-06 04:24 | NUR ---
SHIFT SUMMARY NO ACUTE CHANGES TO REPORT OVERNIGHT. PT LEFT HAND WRAPPED AND IN SLING. HAND IS WARM TO TOUCH AND PT ABLE TO WIGGLE FINGERS SOME. PAIN IS MANAGED WITH DILAUDID DIRECTOR FOOD SAFETY. VITALS STABLE. IV ANTIBIOTICS. PLAN OF CARE REMAINS REMAINS UNCHANGED. BED IN LOWEST POSITION, CALL LIGHT WIHTIN REACH.
[2024-06-06 04:34] VITALS: BP 131/78
[2024-06-06 04:47] LABS: BASOPHILS ABSOLUTE AUTO 0.03 K/mm3 (0.00-0.23); BASOPHILS PERCENT AUTO 0 % (0-2); EOSINOPHILS ABSOLUTE AUTO 0.26 K/mm3 (0.00-0.68); EOSINOPHILS PERCENT AUTO 3 % (0-6); Hematocrit 31.9 % (37.0-53.0); Hemoglobin 10.7 g/dL (13.5-17.5); IMMATURE GRAN ABSOLUTE AUTO 0.16 K/mm3 (0.00-0.10); IMMATURE GRAN PERCENT AUTO 2 % (0-1); LYMPHOCYTES ABSOLUTE AUTO 1.43 K/mm3 (0.84-5.20); LYMPHOCYTES PERCENT AUTO 16 % (21-46); MONOCYTES ABSOLUTE AUTO 0.99 K/mm3 (0.16-1.47); MONOCYTES PERCENT AUTO 11 % (4-13); Mean Corpuscular HGB Conc 33.5 g/dL (31.5-36.5); Mean Corpuscular Volume 89 fL (80-100); Mean Platelet Volume 8.6 fL (9.1-12.4); NEUTROPHILS ABSOLUTE AUTO 6.15 K/mm3 (1.96-9.15); NEUTROPHILS PERCENT AUTO 68 % (41-73); Platelet Count 374 K/mm3 (150-400); RDW Coefficient Variation 12.7 % (11.7-14.2); RDW Standard Deviation 41.7 fL (35.1-46.3); Red Blood Cell Count 3.57 M/mm3 (4.30-5.90); White Blood Cell Count 9.02 K/mm3 (4.00-11.30)
[2024-06-06 05:05] LABS: Albumin, Blood 2.3 g/dL (3.4-5.0); Albumin/Globulin Ratio 0.7 (0.8-1.8); Bilirubin, Total 0.2 mg/dL (0.1-1.0); Bun/Creatinine Ratio 40.1 (12.0-20.0); Calcium, Blood 8.6 mg/dL (8.5-10.1); Creatinine, Blood 0.82 mg/dL (0.60-1.20); Globulin, Blood 3.5 g/dL (2.2-4.0); Potassium, Blood 4.4 mmol/L (3.5-5.5); Total Protein, Blood 5.8 g/dL (6.4-8.2)
[2024-06-06 07:32] VITALS: BP 140/92
[2024-06-06 13:36] LABS: Gentamicin, Trough 0.5 ug/mL (0.0-1.9)
[2024-06-06] MEDS ORDERED: HYDROmorphone HCl 2 MG Tab PO PRN (15:00)
[2024-06-06 15:03] VITALS: BP 130/89
[2024-06-06] MEDS ORDERED: HYDMOR2 PO (16:37)
[2024-06-06] MEDS ORDERED: ACET500 PO (16:39)
--- NOTE | 2024-06-06 17:33 | NUR ---
DISCHARGE PT HAS BEEN DOING WELL. CIRC CHECKS WNL. APPNT SET UP w/ DR ROSIE MACKEY. & PT UNDERSTAND IMPORTANCE OF ATTENDING. RX SENT FOR ABX BY DR SIDDIQUI & PAIN MEDS VIA [facility]. ESCORTED OUT VIA .
== END 2024-06-06 17:27 | disposition home or self-care (01) | DRG 464 ==
LOC: ER 12:54 → SURS 18:10
PROVIDERS: Emergency Medicine; Internal Medicine; Orthopaedic Surgery; Orthopaedic Surgery Sports Medicine; ADMIT Orthopaedic Surgery
PROC: 0RJ Upper Joints, Inspection (ICD-10-PCS; 2024-05-28)
PROC: 0RC Upper Joints, Extirpation (ICD-10-PCS; 2024-05-28)
PROC: 0PDQ0ZZ Extraction of Left Metacarpal, Open Approach (ICD-10-PCS; 2024-05-28)
PROC: 3E1U38Z Irrigation of Joints using Irrigating Substance, Percutaneous Approach (ICD-10-PCS; 2024-05-28)
PROC: 0RBT0ZZ Excision of Left Carpometacarpal Joint, Open Approach (ICD-10-PCS; 2024-05-30)
PROC: 0JBH0ZZ Excision of Left Lower Arm Subcutaneous Tissue and Fascia, Open Approach (ICD-10-PCS; principal; 2024-05-30 15:00)
PROC: 0PBQ0ZZ Excision of Left Metacarpal, Open Approach (ICD-10-PCS; 2024-06-01)
PROC: 0PBQ0ZZ Excision of Left Metacarpal, Open Approach (ICD-10-PCS; 2024-06-04)
DX: S62.112B Displaced fracture of triquetrum [cuneiform] bone, left wrist, initial encounter for open fracture (principal); I96 Gangrene, not elsewhere classified; S62.152 Displaced fracture of hook process of hamate [unciform] bone, left wrist; V29.99XA Rider (driver) (passenger) of other motorcycle injured in unspecified traffic accident, initial encounter; N40.0 Benign prostatic hyperplasia without lower urinary tract symptoms; E78.5 Hyperlipidemia, unspecified; Z79.899 Other long term (current) drug therapy; R91.1 Solitary pulmonary nodule; S60.455A Superficial foreign body of left ring finger, initial encounter; S60.453A Superficial foreign body of left middle finger, initial encounter
CPT/HCPCS: 36415; 70450; 71045; 71260; 72125; 73130; 73200; 74177; 80048; 80053; 80170; 85025; 85651; 86140; 86141; 87070; 87075; 87077; 87186; 87205; 90471; 90715; 93005; 93010; 94760; 94762; 96365-59; 96375-59; 96376-59; 99285-25; A9270; J0171; J0690; J1100; J1170; J1171; J1580; J1885; J2250; J2371; J2405; J2704; J3010; J7050; J7120; Q9967